=== PATIENT | male | born 1955 | race Caucasian/White ===

== ENCOUNTER → 2016-12-28 | Outpatient (CLI) | payer BC ==
[2016-12-28 09:23] LABS: CHLORIDE,CL 109 mmol/L (98-110); SODIUM,NA 145 mmol/L (136-146)
== END ==
LOC: MW.CHFP 08:38
PROVIDERS: ATTEND Student in an Organized Health Care Education/Training Program
DX: M15.2 Bouchard's nodes (with arthropathy) (principal); N40.1 Benign prostatic hyperplasia with lower urinary tract symptoms
CPT/HCPCS: 36415; 80053; 80061; G0103

== ENCOUNTER 2020-03-31 17:37 | Observation (INO) | payer BC, MEDICARE ==
[2020-03-31] MEDS ORDERED: Sodium Chloride 0.9% 2.5 ML Syringe FLUSH PRN (18:17)
[2020-03-31] MEDS ORDERED: Sodium Chloride 0.9% 10 ML Syringe FLUSH PRN (18:17)
--- NOTE | 2020-03-31 18:27 | EDM.PDOC ---
ED HPI GENERAL MEDICAL PROBLEM - General Chief Complaint: Eye Problems Stated Complaint: VISION PROBLEM Time Seen by Provider: 03/31/20 17:59 - History of Present Illness INITIAL COMMENTS - FREE TEXT/NARRATIVE: History of present illness: 64-year-old male presenting with bilateral left hemifield blurred vision for the last 2 to 3 days. He reports it looks like waves/ripples over the water. He is able to see items behind it but they are blurred. He reports that he thinks it is an allergy to the Macrobid that he was prescribed after prostate surgery that he had a week ago. He was in the hospital for several days after that and while he was in the hospital he developed headache. He thought it was just his usual tension headache in the setting of a recent surgery. Then he reports that he started to have some blurring in the left hemifield after they took out his Fields catheter before discharge. Symptoms have been ongoing since then. He reports he is stubborn and did not want to seek care. His aspirin has been held in anticipation of the surgery and he has not yet started, due to restart in 4 days. Review of systems: As per history of present illness and below otherwise all systems reviewed and negative. Past medical history: As per history of present illness and as reviewed below otherwise noncontributory. Surgical history: As per history of present illness and as reviewed below otherwise noncontributory. Social history: No reported history of drug or alcohol abuse. Family history: As per history of present illness and as reviewed below otherwise noncontributory. Physical exam: GEN: no acute distress, well appearing HEENT: Atraumatic, normocephalic, mucous membranes moist. No temporal tenderness. EOMI. No conjunctival injection. Pupils are equal, round and and reactive to light. Funduscopic exam, the optic disc is visible without any obvious abnormality or hemorrhage though exam is limited as the patient is unable to hold his eyes still. Neck: supple, nontender, trachea midline. Lungs: No respiratory distress. Heart: RRR Abdomen: Soft, nondistended, nontender. Back: nontender Extremities: Atraumatic. Neurovascularly intact. Neuro: Awake, alert, oriented. Neuro Exam nonfocal. Equal motor and sensation bilaterally over both arms, both legs and both sides of face. No ataxia. Intact gait. Patient does report left hemifield blurring with both eyes open and each eye independently tested. Skin: warm, dry, no lesions Diagnostics: CT scan shows right occipital subacute infarct Therapeutics: [] MDM: Suspect occipital, ongoing for the last [address] scan does show subacute stroke in the right stroke due to symptoms occipital lobe. Patient had to hold aspirin for recent surgery. Will admit. Impression: [] Plan: [] Definitive disposition and diagnosis as appropriate pending reevaluation and review of above. - Related Data Allergies Allergy/AdvReac Type Severity Reaction Status Date / Time No Known Allergies Allergy Verified 03/31/20 20:12 Home Meds: Home Meds Dorzolamide HCl 1 drop EYEBOTH BID 03/31/20 [History] Latanoprost/Pf [Latanoprost 0.005% Eye Drop] 1 drop EYEBOTH BEDTIME 03/31/20 [ History] Lisinopril/Hydrochlorothiazide [Lisinopril-HCTZ 10-12.5 MG] 1 tab PO DAILY 03/31 [History] Omeprazole 20 mg PO DAILY 03/31/20 [History] atorvaSTATin [Lipitor] 40 mg PO DAILY 03/31/20 [History] Past Medical History HEENT History: Reports: Glaucoma, Impaired Vision Cardiovascular History: Reports: High Cholesterol, Hypertension Respiratory History: Reports: None Gastrointestinal History: Reports: None Genitourinary History: Reports: None Musculoskeletal History: Reports: Back Pain, Chronic Neurological History: Reports: None Psychiatric History: Reports: None Endocrine/Metabolic History: Reports: None Hematologic History: Reports: None Immunologic History: Reports: None Oncologic (Cancer) History: Reports: None Dermatologic History: Reports: None - Infectious Disease History Infectious Disease History: Reports: Chicken Pox - Past Surgical History Head Surgeries/Procedures: Reports: None HEENT Surgical History: Reports: Naso-Sinus Surgery Cardiovascular Surgical History: Reports: None Respiratory Surgical History: Reports: None GI Surgical History: Reports: Appendectomy Male Surgical History: Reports: Prostate Biopsy, Vasectomy, Other (See Below) Endocrine Surgical History: Reports: None Neurological Surgical History: Reports: None Musculoskeletal Surgical History: Reports: Other (See Below) Other Musculoskeletal Surgeries/Procedures:: back surgery Oncologic Surgical History: Reports: None Dermatological Surgical History: Reports: None Social & Family History - Family History Family Medical History: Noncontributory - Tobacco Use Smoking Status *Q: Former Smoker Used Tobacco, but Quit: Yes Month/Year Tobacco Last Used: 5-8 years - Caffeine Use Caffeine Use: Reports: Coffee - Recreational Drug Use Recreational Drug Use: No ED ROS GENERAL - Review of Systems Review Of Systems: See Below (See HPI) ED EXAM GENERAL W FULL EYE - Physical Exam Exam: See Below (See dictation) EKG INTERPRETATION EKG Interpretation Comments: EKG performed today at 6:24 PM, sinus rhythm with rate 89, no acute ischemia, no arrhythmia. Course - Vital Signs Text/Narrative:: Paged hospitalist to admit the patient. Call not immediately returned. Orders placed and oncoming overnight physician will discuss the case with admitting physician when she calls back. Last Recorded V/S: Last Vital Signs Temp 98.1 F 04/01/20 05:47 Pulse 81 04/01/20 05:47 Resp 18 04/01/20 05:47 BP 133/81 04/01/20 05:47 Pulse Ox 93 L 04/01/20 05:47 - Orders/Labs/Meds Orders: Active Orders 24 hr Category Date Time Status Patient Status [ADT] Routine ADT 03/31/20 19:13 Active Sodium Chloride 0.9% [Saline Flush] Med 03/31/20 18:17 Active 10 ml FLUSH ASDIRECTED PRN Sodium Chloride 0.9% [Saline Flush] Med 03/31/20 18:17 Active 2.5 ml FLUSH ASDIRECTED PRN Saline Lock Insert [OM.PC] Stat Oth 03/31/20 18:17 Ordered Medication Orders Albuterol/Ipratropium (Duoneb 3.0-0.5 Mg/3 Ml) 3 ml NEB Q4HRRT PRN PRN Reason: Shortness Of Breath/wheezing Aspirin (Aspirin) 81 mg PO DAILY [facility] Atorvastatin Calcium (Lipitor) 40 mg PO DAILY [facility] Dorzolamide HCl (Trusopt 2% Oph Soln) 0 ml EYEBOTH BID HENRY Last Admin: 03/31/20 21:53 Dose: Lactated Ringer's (Ringers, Lactated) 1,000 mls @ 125 mls/hr IV ASDIRECTED HENRY Last Admin: 03/31/20 20:48 Dose: 125 mls/hr Latanoprost (Xalatan 0.005% Oph Soln) 0 ml EYEBOTH BEDTIME HENRY Last Admin: 03/31/20 23:56 Dose: Omeprazole (Omeprazole) 20 mg PO DAILY HENRY Sodium Chloride (Saline Flush) 10 ml FLUSH ASDIRECTED PRN PRN Reason: Keep Vein Open Sodium Chloride (Saline Flush) 2.5 ml FLUSH ASDIRECTED PRN PRN Reason: Keep Vein Open Labs: Laboratory Tests 03/31/20 03/31/20 03/31/20 Range/Units 18:27 18:27 18:27 WBC 9.41 (4.0-11.0) K/uL RBC 4.86 (4.50-5.90) M/uL Hgb 15.0 (13.0-17.0) g/dL Hct 44.7 (38.0-50.0) % MCV 92.0 (80.0-98.0) fL MCH 30.9 (27.0-32.0) pg MCHC 33.6 (31.0-37.0) g/dL RDW Std Deviation 43.0 (28.0-62.0) fl RDW Coeff of [place]admin[place] 13 (11.0-15.0) % Plt Count 326 (150-400) K/uL MPV 10.20 (7.40-12.00) fL Neut % (Auto) 60.5 (48.0-80.0) % Lymph % (Auto) 28.3 (16.0-40.0) % [place] % (Auto) 8.0 (0.0-15.0) % Eos % (Auto) 2.8 (0.0-7.0) % Baso % (Auto) 0.4 (0.0-1.5) % Neut # (Auto) 5.7 (1.4-5.7) K/uL Lymph # (Auto) 2.7 H (0.6-2.4) K/uL [place] # (Auto) 0.8 (0.0-0.8) K/uL Eos # (Auto) 0.3 (0.0-0.7) K/uL Baso # (Auto) 0.0 (0.0-0.1) K/uL Nucleated RBC % 0.0 /100WBC Nucleated RBCs # 0 K/uL ESR 11 (0-19) mm/hr Sodium 140 (136-148) mmol/L Potassium 3.9 (3.5-5.1) mmol/L Chloride 104 (98-107) mmol/L Carbon Dioxide 26.8 (21.0-32.0) mmol/L BUN 17 (7.0-18.0) mg/dL Creatinine 1.4 H (0.8-1.3) mg/dL Est Cr Clr Drug Dosing 64.58 mL/min Estimated GFR (MDRD) 50.9 ml/min Glucose 113 H (74-106) mg/dL Calcium 8.7 (8.5-10.1) mg/dL Total Bilirubin 0.3 (0.2-1.0) mg/dL AST 52 H (15-37) IU/L ALT 87 H (14-63) IU/L Alkaline Phosphatase 118 H (46-116) U/L Troponin I < 0.050 (0.000-0.056) ng/mL Total Protein 7.6 (6.4-8.2) g/dL Albumin 3.8 (3.4-5.0) g/dL Globulin 3.8 (2.6-4.0) g/dL Albumin/Globulin Ratio 1.0 (0.9-1.6) Meds: Medications Generic Name Dose Route Start Last Admin Trade Name Freq PRN Reason Stop Dose Admin Albuterol/Ipratropium 3 ml 03/31/20 20:06 Duoneb 3.0-0.5 Mg/3 Ml NEB Q4HRRT PRN Shortness Of Breath/wheezing Aspirin 81 mg 04/01/20 09:00 Aspirin PO DAILY [facility] Atorvastatin Calcium 40 mg 04/01/20 09:00 Lipitor PO DAILY [facility] Dorzolamide HCl 0 ml 03/31/20 21:00 03/31/20 21:53 Trusopt 2% Ophth Soln EYEBOTH Not Given BID HENRY Lactated Ringer's 1,000 mls @ 125 mls/hr 03/31/20 20:15 03/31/20 20:48 Ringers, Lactated IV 125 mls/hr ASDIRECTED HENRY Administration Latanoprost 0 ml 03/31/20 23:45 03/31/20 23:56 Xalatan 0.005% Ophth Soln EYEBOTH Not Given BEDTIME HENRY Omeprazole 20 mg 04/01/20 09:00 Omeprazole PO DAILY [facility]ENRY Sodium Chloride 10 ml 03/31/20 18:17 Saline Flush FLUSH ASDIRECTED PRN Keep Vein Open Sodium Chloride 2.5 ml 03/31/20 18:17 Saline Flush FLUSH ASDIRECTED PRN Keep Vein Open Discontinued Medications Generic Name Dose Route Start Last Admin Trade Name Warrenq PRN Reason Stop Dose Admin Aspirin 324 mg 03/31/20 19:31 03/31/20 19:56 Aspirin PO 03/31/20 19:32 324 mg ONETIME ONE Administration - Re-Assessments/Exams Free Text/Narrative Re-Assessment/Exam: 03/31/20 19:11 Else with patient and need for admission. He agrees with the plan. 19:20: Patient spouse arrived. I did update her as well and brought her back to see the patient. Discussed plan for admission. Both agree with the plan. Departure - Departure Time of Disposition: 19:12 Disposition: Refer to Observation Clinical Impression: Occipital stroke - Discharge Information Sepsis Event Note (ED) - Evaluation Sepsis Screening Result: No Definite Risk - My Orders Last 24 Hours: My Active Orders 03/31/20 18:17 Sodium Chloride 0.9% [Saline Flush] 10 ml FLUSH ASDIRECTED PRN Sodium Chloride 0.9% [Saline Flush] 2.5 ml FLUSH ASDIRECTED PRN Saline Lock Insert [OM.PC] Stat 03/31/20 19:13 Patient Status [ADT] Routine - Assessment/Plan Last 24 Hours: My Active Orders 03/31/20 18:17 Sodium Chloride 0.9% [Saline Flush] 10 ml FLUSH ASDIRECTED PRN Sodium Chloride 0.9% [Saline Flush] 2.5 ml FLUSH ASDIRECTED PRN Saline Lock Insert [OM.PC] Stat 03/31/20 19:13 Patient Status [ADT] Routine
--- NOTE | 2020-03-31 18:58 | CT ---
Head CT Technique: Multiple axial sections through the brain were obtained. Intravenous contrast was not utilized. Comparison: No prior intracranial imaging is available. Findings: Ventricles along with basal cisterns and sulci over the convexities are within normal limits for the patient's age. Low density is noted within the right occipital lobe which is most suspicious for a subacute infarct. Old infarct is noted within the left basal ganglia. No other abnormal parenchymal densities are seen. No evidence of intracranial hemorrhage. No midline shift or mass-effect is seen. Slight mucosal thickening is seen within the ethmoid sinuses. Retention cyst is noted within the inferior left maxillary sinus measuring 1.4 cm. Mastoid sinuses show nothing acute. Impression: 1. Subacute infarct within the right occipital lobe. Recommend MRI to confirm that this does represent an infarct. This can be done non-emergently as this finding appears to be irreversible. 2. Old infarct within the left basal ganglia. 3. No intracranial hemorrhage is seen. Diagnostic code #3 This report was dictated in MDT
[2020-03-31 18:59] LABS: BLOOD UREA NITROGEN,BUN 17 mg/dL (7.0-18.0); CARBON DIOXIDE,CO2 26.8 mmol/L (21.0-32.0); CHLORIDE,CL 104 mmol/L (98-107); GLUCOSE RANDOM 113 mg/dL (74-106); POTASSIUM,K 3.9 mmol/L (3.5-5.1); SODIUM,NA 140 mmol/L (136-148)
[2020-03-31] MEDS ORDERED: Aspirin 81 MG Tab.Chew PO ONE (19:31)
[2020-03-31] MEDS ORDERED: Albuterol/Ipratropium 3.0-0.5 MG/3 ML Neb Soln NEB PRN (20:06)
[2020-03-31] MEDS ORDERED: Lactated Ringers 1,000 ML IV SCH (20:15)
[2020-03-31] MEDS ORDERED: Dorzolamide 2% Ophth Soln 10 ML Bottle EYEBOTH SCH (21:00)
--- NOTE | 2020-03-31 21:08 | PCM.HP.2 ---
H&P History of Present Illness - General Date of Service: 03/31/20 Admit Problem/Dx: Admission Diagnosis/Problem Admission Diagnosis/Problem Stroke of unknown etiology - History of Present Illness Initial Comments - Free Text/Narative: 64-year-old male presenting with bilateral left hemifield blurred vision for the last 2 to 3 days. patient states that his vision looks like ripples over water surface. States he didnt come in earlier because he already has vision issues due to glucoma and cataract surgery and thought it might be an allergy to the Macrobid that he was prescribed after prostate surgery that he had a week ago. Patient states that he had a prostate surgery for BPH 1 week back and during his recovery he developed headache and blurry vision. States his symptoms were attributed to anaesthesia post op. Symptoms have been ongoing since then. His aspirin had been held in anticipation of the surgery and he had not yet started, due to restart in [address] showed subacute stroke in occipital lobe. Patient was admitted for further care. - Related Data Allergies/Adverse Reactions: Allergies Allergy/AdvReac Type Severity Reaction Status Date / Time No Known Allergies Allergy Verified 03/31/20 20:12 Home Medications: Home Meds Latanoprost/Pf [Latanoprost 0.005% Eye Drop] 1 drop EYEBOTH BEDTIME 03/31/20 [ History] Lisinopril/Hydrochlorothiazide [Lisinopril-HCTZ 10-12.5 MG] 10 - 12.5 mg PO DAILY 03/31/20 [History] Omeprazole 20 mg PO ACBREAKFAST 03/31/20 [History] atorvaSTATin [Lipitor] 40 mg PO DAILY 03/31/20 [History] Aspirin 81 mg PO DAILY tab.chew 04/01/20 [Rx] Clopidogrel Bisulfate [Plavix] 75 mg PO DAILY 30 Days #30 tablet 04/01/20 [Rx] Dorzolamide HCl/Timolol Maleat [Dorzolamide-Timolol Eye Drops] 1 drop EYEBOTH BID 04/01/20 [History] Patient's Own Medication [Ptom] 0 each EYEBOTH BID each 04/01/20 [Rx] Past Medical History HEENT History: Reports: Glaucoma, Impaired Vision Cardiovascular History: Reports: High Cholesterol, Hypertension Respiratory History: Reports: None Gastrointestinal History: Reports: None Genitourinary History: Reports: None Musculoskeletal History: Reports: Back Pain, Chronic Neurological History: Reports: None Psychiatric History: Reports: None Endocrine/Metabolic History: Reports: None Hematologic History: Reports: None Immunologic History: Reports: None Oncologic (Cancer) History: Reports: None Dermatologic History: Reports: None - Infectious Disease History Infectious Disease History: Reports: Chicken Pox - Past Surgical History Head Surgeries/Procedures: Reports: None HEENT Surgical History: Reports: Naso-Sinus Surgery Cardiovascular Surgical History: Reports: None Respiratory Surgical History: Reports: None GI Surgical History: Reports: Appendectomy Male Surgical History: Reports: Prostate Biopsy, Vasectomy, Other (See Below) Endocrine Surgical History: Reports: None Neurological Surgical History: Reports: None Musculoskeletal Surgical History: Reports: Other (See Below) Other Musculoskeletal Surgeries/Procedures:: back surgery Oncologic Surgical History: Reports: None Dermatological Surgical History: Reports: None Social & Family History - Family History Family Medical History: Noncontributory - Tobacco Use Smoking Status *Q: Former Smoker Years of Tobacco use: 5 Used Tobacco, but Quit: Yes Month/Year Tobacco Last Used: 2014 - Caffeine Use Caffeine Use: Reports: Coffee, Soda - Recreational Drug Use Recreational Drug Use: No H&P Review of Systems - Review of Systems: Review Of Systems: See Below General: Denies: Fever, Chills HEENT: Reports: Visual Changes. Denies: Dysphasia, Ear Pain, Eye Pain, Post Nasal Drip, Sinus Congestion, Sore Throat, Vertigo Pulmonary: Denies: Shortness of Breath, Wheezing Cardiovascular: Denies: Chest Pain, Palpitations, Dyspnea on Exertion Gastrointestinal: Denies: Abdominal Pain, Anorexia, Black Stool, Nausea Genitourinary: Denies: Dysuria, Frequency Musculoskeletal: Denies: Neck Pain, Shoulder Pain Skin: Denies: Jaundice, Mottled Psychiatric: Denies: Confusion, Depression, Mood Lability Neurological: Reports: Headache. Denies: Confusion Hematologic/Lymphatic: Denies: Anemia, Easy Bleeding Exam - Vital Signs Vital Signs: Last Vital Signs Temp 35.6 C L 03/31/20 19:59 Pulse 102 H 03/31/20 19:59 Resp 18 03/31/20 19:59 BP 147/99 H 03/31/20 19:59 Pulse Ox 94 L 03/31/20 19:59 Weight: 99.79 kg - Exam General: Alert, Oriented, Cooperative HEENT: Conjunctiva Clear Neck: Supple, Trachea Midline Lungs: Clear to Auscultation, Normal Respiratory Effort Cardiovascular: Regular Rate, Regular Rhythm, Normal S1, Normal S2 Extremities: Normal Inspection, Normal Range of Motion Neurological: Reflexes Equal Bilateral, Strength Equal Bilateral, Normal Speech , Normal Tone, Sensation Intact. No: Cranial Nerves Intact, Abnormal Gait Neuro Extensive - Mental Status: Alert, Oriented x3, Other (b/l hemianopsia more severe on left side ) - Patient Data Lab Results Last 24 hrs: Laboratory Results - last 24 hr 03/31/20 03/31/20 03/31/20 Range/Units 18:27 18:27 18:27 WBC 9.41 (4.0-11.0) K/uL RBC 4.86 (4.50-5.90) M/uL Hgb 15.0 (13.0-17.0) g/dL Hct 44.7 (38.0-50.0) % MCV 92.0 (80.0-98.0) fL MCH 30.9 (27.0-32.0) pg MCHC 33.6 (31.0-37.0) g/dL RDW Std Deviation 43.0 (28.0-62.0) fl RDW Coeff of [place] 13 (11.0-15.0) % Plt Count 326 (150-400) K/uL MPV 10.20 (7.40-12.00) fL Neut % (Auto) 60.5 (48.0-80.0) % Lymph % (Auto) 28.3 (16.0-40.0) % [place] % (Auto) 8.0 (0.0-15.0) % Eos % (Auto) 2.8 (0.0-7.0) % Baso % (Auto) 0.4 (0.0-1.5) % Neut # (Auto) 5.7 (1.4-5.7) K/uL Lymph # (Auto) 2.7 H (0.6-2.4) K/uL [place] # (Auto) 0.8 (0.0-0.8) K/uL Eos # (Auto) 0.3 (0.0-0.7) K/uL Baso # (Auto) 0.0 (0.0-0.1) K/uL Nucleated RBC % 0.0 /100WBC Nucleated RBCs # 0 K/uL ESR 11 (0-19) mm/hr Sodium 140 (136-148) mmol/L Potassium 3.9 (3.5-5.1) mmol/L Chloride 104 (98-107) mmol/L Carbon Dioxide 26.8 (21.0-32.0) mmol/L BUN 17 (7.0-18.0) mg/dL Creatinine 1.4 H (0.8-1.3) mg/dL Est Cr Clr Drug Dosing 64.58 mL/min Estimated GFR (MDRD) 50.9 ml/min Glucose 113 H (74-106) mg/dL Calcium 8.7 (8.5-10.1) mg/dL Total Bilirubin 0.3 (0.2-1.0) mg/dL AST 52 H (15-37) IU/L ALT 87 H (14-63) IU/L Alkaline Phosphatase 118 H (46-116) U/L Troponin I < 0.050 (0.000-0.056) ng/mL Total Protein 7.6 (6.4-8.2) g/dL Albumin 3.8 (3.4-5.0) g/dL Globulin 3.8 (2.6-4.0) g/dL Albumin/Globulin Ratio 1.0 (0.9-1.6) Result Diagrams: 04/01/20 05:35 04/01/20 05:35 Sepsis Event Note - Evaluation Sepsis Screening Result: No Definite Risk - Focused Exam Vital Signs: Vital Signs Temp Pulse Resp BP Pulse Ox 03/31/20 19:59 35.6 C L 102 H 18 147/99 H 94 L 03/31/20 17:50 35.8 C L 96 16 134/83 96 Date Exam was Performed: 04/01/20 Time Exam was Performed: 16:13 - Problem List (1) Occipital stroke SNOMED Code(s): 727569758 ICD Code: I63.9 - CEREBRAL INFARCTION, UNSPECIFIED Status: Acute (2) HLD (hyperlipidemia) SNOMED Code(s): 40346388 ICD Code: E78.5 - HYPERLIPIDEMIA, UNSPECIFIED Status: Acute (3) HTN (hypertension) SNOMED Code(s): 50772045 ICD Code: I10 - ESSENTIAL (PRIMARY) HYPERTENSION Status: Acute Problem List Initiated/Reviewed/Updated: Yes Orders Last 24hrs: Active Orders 24 hr Category Date Time Status Patient Status [ADT] Routine ADT 03/31/20 19:13 Active Ambulate [RC] ASDIRECTED Care 03/31/20 20:06 Active Antiembolic Devices [RC] PER UNIT ROUTINE Care 03/31/20 20:08 Active EKG Documentation Completion [RC] STAT Care 03/31/20 18:17 Active Oxygen Therapy [RC] PRN Care 03/31/20 20:06 Active Pulse Oximetry [RC] PRN Care 03/31/20 20:07 Active RT Aerosol Therapy [RC] ASDIRECTED Care 03/31/20 20:08 Active Telemetry Monitoring [Cardiac Monitoring] [RC] . Care 03/31/20 19:41 Active DIRECTED VTE/DVT Education [RC] PER UNIT ROUTINE Care 03/31/20 20:06 Active Vital Signs [RC] Q4H Care 03/31/20 20:06 Active Heart Healthy Diet [DIET] Diet 03/31/20 Dinner Active Ang Neck w wo Cont [MR] Routine Exams 03/31/20 20:12 Ordered Brain wo Cont [MR] Routine Exams 03/31/20 20:12 Ordered MRA Head Without Contrast [Ang Head wo Cont] [MR] Exams 03/31/20 20:11 Ordered Routine CBC WITH AUTO DIFF [HEME] AM Lab 04/01/20 05:11 Ordered CMP [COMPREHENSIVE METABOLIC PN,CMP] [CHEM] AM Lab 04/01/20 05:11 Ordered MAGNESIUM [CHEM] AM Lab 04/01/20 05:11 Ordered PHOSPHORUS [CHEM] AM Lab 04/01/20 05:11 Ordered Albuterol/Ipratropium [DuoNeb 3.0-0.5 MG/3 ML] Med 03/31/20 20:06 Active 3 ml NEB Q4HRRT PRN Aspirin Med 04/01/20 09:00 Active 81 mg PO DAILY Dorzolamide [Trusopt 2% Ophth Soln] Med 03/31/20 21:00 Active 0 ml EYEBOTH BID Lactated Ringers [Ringers, Lactated] 1,000 ml Med 03/31/20 20:15 Active IV ASDIRECTED Omeprazole Med 04/01/20 09:00 Active 20 mg PO DAILY Sodium Chloride 0.9% [Saline Flush] Med 03/31/20 18:17 Active 10 ml FLUSH ASDIRECTED PRN Sodium Chloride 0.9% [Saline Flush] Med 03/31/20 18:17 Active 2.5 ml FLUSH ASDIRECTED PRN atorvaSTATin [Lipitor] Med 04/01/20 09:00 Active 40 mg PO DAILY Saline Lock Insert [OM.PC] Stat Oth 03/31/20 18:17 Ordered Sequential Compression Device [OM.PC] Per Unit Routine Ot 03/31/20 20:07 Ordered Medication Orders Albuterol/Ipratropium (Duoneb 3.0-0.5 Mg/3 Ml) 3 ml NEB Q4HRRT PRN PRN Reason: Shortness Of Breath/wheezing Aspirin (Aspirin) 81 mg PO DAILY [facility] Atorvastatin Calcium (Lipitor) 40 mg PO DAILY [facility] Dorzolamide HCl (Trusopt 2% Ophth Soln) 0 ml EYEBOTH BID HENRY Lactated Ringer's (Ringers, Lactated) 1,000 mls @ 125 mls/hr IV ASDIRECTED HENRY Last Admin: 03/31/20 20:48 Dose: 125 mls/hr Omeprazole (Omeprazole) 20 mg PO DAILY [facility] Sodium Chloride (Saline Flush) 10 ml FLUSH ASDIRECTED PRN PRN Reason: Keep Vein Open Sodium Chloride (Saline Flush) 2.5 ml FLUSH ASDIRECTED PRN PRN Reason: Keep Vein Open Assessment/Plan Comment:: 64 y/o M admitted for management of subacute occipital stroke found on CT head Admit to observation Admit to telemetry start ASA, statin Check HbA1c, TSH, Lipids have been checked recently Will obtain MRI brain, MRA head and neck cont risk stratification Allow permissive HTN Monitor and replete electrolytes cardiac diet Stroke education Ambulate as able, fall precautions for now SCD for DVT ppx
[2020-03-31] MEDS ORDERED: Latanoprost 0.005% Ophth Soln 2.5 ML Bottle EYEBOTH SCH (23:45)
[2020-04-01 06:27] LABS: CARBON DIOXIDE,CO2 28.6 mmol/L (21.0-32.0); POTASSIUM,K 4.2 mmol/L (3.5-5.1)
[2020-04-01] MEDS ORDERED: DORZOLAMIDE EYEBOTH SCH (07:40)
[2020-04-01] MEDS ORDERED: TIMOLOL OPTH EYEBOTH SCH (07:40)
[2020-04-01] MEDS ORDERED: Omeprazole 20 MG Cap.CR PO SCH (07:45)
[2020-04-01 08:09] LABS: HEMOGLOBIN A1C 6.1 % (4.5-6.2)
[2020-04-01] MEDS ORDERED: Gadobenate Dimeglumine 529 MG/ML 20 ML SDV IVPUSH STA (08:35)
[2020-04-01] MEDS ORDERED: Aspirin 81 MG Tab.Chew PO SCH (09:00)
[2020-04-01] MEDS ORDERED: atorvaSTATin 40 MG Tab PO SCH (09:00)
--- NOTE | 2020-04-01 10:09 | MR ---
MR angiogram of brain Technique: [id number] MR angiogram study was obtained centered to the [place] of [place]. Reconstructed mid images were obtained in multiple projections. Comparison: Prior head CT study of , no prior arterial imaging of the brain is available. Findings: Both distal vertebral arteries are patent into the basilar artery as well as patency of both posterior cerebral arteries. Carotid siphon is patent into the middle and anterior cerebral arteries. No focal occlusion or stenosis is seen. No discrete aneurysm is appreciated. Both A1 segments are slightly small which are believed to be normal variant. Impression: 1. Small A1 segments on both sides believed to be normal variant. 2. No discrete stenosis or occlusion is seen within the cerebral vessels. Diagnostic code #2 This report was dictated in MDT
--- NOTE | 2020-04-01 11:06 | MR ---
MRI brain Technique: T1 sagittal and coronal; T1, FLAIR, T2 and diffusion axial of the brain were obtained. Comparison: Prior head CT study of 03/31/20. Findings: Increased signal is noted on the long TR sequence within the right occipital lobe. This occipital lesion also shows abnormal diffusion. Findings are felt compatible with subacute occipital infarct which is nonreversible. No other areas of abnormal diffusion are seen. Ventricles along with basal cisterns and sulci over the convexities are within normal limits for the patient's age. Multiple small areas of increased signal are seen within the subcortical and periventricular white matter which is felt to represent small vessel ischemic demyelination change. Impression: 1. Right occipital lobe infarct which appears subacute in age but is irreversible. 2. No other acute diffusion abnormalities are seen. 3. White matter changes which are felt compatible with diffuse small vessel ischemic demyelination change. Diagnostic code #3 This report was dictated in MDT
--- NOTE | 2020-04-01 11:06 | MR ---
MR angiogram of neck (without and with intravenous contrast) Technique: Phase contrast imaging was obtained of the neck. Significant artifact is noted on this study. Intravenous gadolinium then given and multiple rib images obtained of the neck. Findings: Contrast study is best to interpret. Common carotid arteries, innominate arteries, subclavian and proximal axillary arteries are patent. Carotid bulbs on both sides show no focal stenosis. Internal carotid arteries and proximal external carotid arteries appear within normal limits. Both vertebral arteries are seen. There is diffuse proximal narrowing of the left vertebral artery. Other portions of the left vertebral artery are patent. Impression: 1. Diffuse narrowing within the proximal left vertebral artery measuring greater than 50%. 2. No additional abnormality is seen on MR angiogram study of the neck. Diagnostic code #3 This report was dictated in MDT
--- NOTE | 2020-04-01 11:47 | PCM.PN ---
- Patient Data Vitals - Most Recent: Last Vital Signs Temp 98.8 F 04/01/20 11:37 Pulse 88 04/01/20 11:37 Resp 16 04/01/20 11:37 BP 138/84 04/01/20 11:37 Pulse Ox 95 04/01/20 11:37 Weight - Most Recent: 99.79 kg I&O - Last 24 Hours: Intake & Output 03/31/20 04/01/20 04/01/20 22:59 06:59 14:59 Intake Total 1280 Output Total 460 Balance 820 Lab Results Last 24 Hours: Laboratory Results - last 24 hr 03/31/20 03/31/20 03/31/20 Range/Units 18:27 18:27 18:27 WBC 9.41 (4.0-11.0) K/uL RBC 4.86 (4.50-5.90) M/uL Hgb 15.0 (13.0-17.0) g/dL Hct 44.7 (38.0-50.0) % MCV 92.0 (80.0-98.0) fL MCH 30.9 (27.0-32.0) pg MCHC 33.6 (31.0-37.0) g/dL RDW Std Deviation 43.0 (28.0-62.0) fl RDW Coeff of Padmini 13 (11.0-15.0) % Plt Count 326 (150-400) K/uL MPV 10.20 (7.40-12.00) fL Neut % (Auto) 60.5 (48.0-80.0) % Lymph % (Auto) 28.3 (16.0-40.0) % [place] % (Auto) 8.0 (0.0-15.0) % Eos % (Auto) 2.8 (0.0-7.0) % Baso % (Auto) 0.4 (0.0-1.5) % Neut # (Auto) 5.7 (1.4-5.7) K/uL Lymph # (Auto) 2.7 H (0.6-2.4) K/uL [place] # (Auto) 0.8 (0.0-0.8) K/uL Eos # (Auto) 0.3 (0.0-0.7) K/uL Baso # (Auto) 0.0 (0.0-0.1) K/uL Nucleated RBC % 0.0 /100WBC Nucleated RBCs # 0 K/uL ESR 11 (0-19) mm/hr Sodium 140 (136-148) mmol/L Potassium 3.9 (3.5-5.1) mmol/L Chloride 104 (98-107) mmol/L Carbon Dioxide 26.8 (21.0-32.0) mmol/L BUN 17 (7.0-18.0) mg/dL Creatinine 1.4 H (0.8-1.3) mg/dL Est Cr Clr Drug Dosing 64.58 mL/min Estimated GFR (MDRD) 50.9 ml/min Glucose 113 H (74-106) mg/dL Hemoglobin A1c (4.5-6.2) % Calcium 8.7 (8.5-10.1) mg/dL Phosphorus (2.6-4.7) mg/dL Magnesium (1.8-2.4) mg/dL Total Bilirubin 0.3 (0.2-1.0) mg/dL AST 52 H (15-37) IU/L ALT 87 H (14-63) IU/L Alkaline Phosphatase 118 H (46-116) U/L Troponin I < 0.050 (0.000-0.056) ng/mL Total Protein 7.6 (6.4-8.2) g/dL Albumin 3.8 (3.4-5.0) g/dL Globulin 3.8 (2.6-4.0) g/dL Albumin/Globulin Ratio 1.0 (0.9-1.6) 03/31/20 04/01/20 04/01/20 Range/Units 18:27 05:35 05:35 WBC 8.44 (4.0-11.0) K/uL RBC 4.38 L (4.50-5.90) M/uL Hgb 13.3 (13.0-17.0) g/dL Hct 40.3 (38.0-50.0) % MCV 92.0 (80.0-98.0) fL MCH 30.4 (27.0-32.0) pg MCHC 33.0 (31.0-37.0) g/dL RDW Std Deviation 43.3 (28.0-62.0) fl RDW Coeff of Padmini 13 (11.0-15.0) % Plt Count 267 (150-400) K/uL MPV 10.20 (7.40-12.00) fL Neut % (Auto) 58.3 (48.0-80.0) % Lymph % (Auto) 30.3 (16.0-40.0) % [place] % (Auto) 8.4 (0.0-15.0) % Eos % (Auto) 2.6 (0.0-7.0) % Baso % (Auto) 0.4 (0.0-1.5) % Neut # (Auto) 4.9 (1.4-5.7) K/uL Lymph # (Auto) 2.6 H (0.6-2.4) K/uL [place] # (Auto) 0.7 (0.0-0.8) K/uL Eos # (Auto) 0.2 (0.0-0.7) K/uL Baso # (Auto) 0.0 (0.0-0.1) K/uL Nucleated RBC % 0.0 /100WBC Nucleated RBCs # 0 K/uL ESR (0-19) mm/hr Sodium 143 (136-148) mmol/L Potassium 4.2 (3.5-5.1) mmol/L Chloride 106 (98-107) mmol/L Carbon Dioxide 28.6 (21.0-32.0) mmol/L BUN 15 (7.0-18.0) mg/dL Creatinine 1.3 (0.8-1.3) mg/dL Est Cr Clr Drug Dosing 69.55 mL/min Estimated GFR (MDRD) 55.4 ml/min Glucose 109 H (74-106) mg/dL Hemoglobin A1c 6.1 (4.5-6.2) % Calcium 8.5 (8.5-10.1) mg/dL Phosphorus 3.5 (2.6-4.7) mg/dL Magnesium 1.9 (1.8-2.4) mg/dL Total Bilirubin 0.5 (0.2-1.0) mg/dL AST 42 H (15-37) IU/L ALT 74 H (14-63) IU/L Alkaline Phosphatase 91 (46-116) U/L Troponin I (0.000-0.056) ng/mL Total Protein 6.4 (6.4-8.2) g/dL Albumin 3.3 L (3.4-5.0) g/dL Globulin 3.1 (2.6-4.0) g/dL Albumin/Globulin Ratio 1.1 (0.9-1.6) Med Orders - Current: Current Medications Albuterol/Ipratropium (Duoneb 3.0-0.5 Mg/3 Ml) 3 ml NEB Q4HRRT PRN PRN Reason: Shortness Of Breath/wheezing Aspirin (Aspirin) 81 mg PO DAILY [facility] Last Admin: 04/01/20 09:44 Dose: 81 mg Lactated Ringer's (Ringers, Lactated) 1,000 mls @ 125 mls/hr IV ASDIRECTED [facility] Last Admin: 03/31/20 20:48 Dose: 125 mls/hr Omeprazole (Omeprazole) 20 mg PO ACBREAKFAST [facility] Last Admin: 04/01/20 09:44 Dose: 20 mg Atorvastatin 40 Mg (Tab) 0 each PO DAILY [facility] Last Admin: 04/01/20 09:44 Dose: 1 each Dorzolamide/Timolol (Opth Drops) 0 each EYEBOTH BID [facility] Last Admin: 04/01/20 09:45 Dose: 1 each Latanoprost 0.005% Ophth Soln 2.5 Ml Bottle 0 each EYEBOTH BEDTIME [facility] Sodium Chloride (Saline Flush) 10 ml FLUSH ASDIRECTED PRN PRN Reason: Keep Vein Open Sodium Chloride (Saline Flush) 2.5 ml FLUSH ASDIRECTED PRN PRN Reason: Keep Vein Open Discontinued Medications Aspirin (Aspirin) 324 mg PO ONETIME ONE Stop: 03/31/20 19:32 Last Admin: 03/31/20 19:56 Dose: 324 mg Dorzolamide HCl (Trusopt 2% Ophth Soln) 0 ml EYEBOTH BID [facility] Last Admin: 03/31/20 21:53 Dose: Not Given Gadobenate Dimeglumine (Multihance) 20 ml IVPUSH ONETIME STA Stop: 04/01/20 08:36 Last Admin: 04/01/20 08:37 Dose: 20 ml Latanoprost (Xalatan 0.005% Ophth Soln) 0 ml EYEBOTH BEDTIME [facility] Last Admin: 03/31/20 23:56 Dose: Not Given Sepsis Event Note - Evaluation Sepsis Screening Result: No Definite Risk - Focused Exam Vital Signs: Vital Signs Temp Pulse Resp BP Pulse Ox 04/01/20 11:37 98.8 F 88 16 138/84 95 04/01/20 07:50 97.9 F 70 16 122/71 94 L 04/01/20 05:47 98.1 F 81 18 133/81 93 L 04/01/20 02:19 98.4 F 79 18 129/79 96 Date Exam was Performed: 04/01/20 Time Exam was Performed: 11:47
--- NOTE | 2020-04-01 18:17 | PCM.DCSUM1 ---
Discharge Summary - Hospital Course Free Text/Narrative:: 64-year-old male presented with bilateral left hemifield blurred vision for the last 2 to 3 days prior to admission. patient states that his vision looks like "ripples over water surface". States he didnt come in earlier because he already has vision issues due to Glaucoma and cataract surgery and thought it might be an allergy to the Macrobid that he was prescribed after prostate surgery that he had a week ago. Patient states that he had a prostate surgery for BPH 1 week back and during his recovery he developed headache and blurry vision. States his symptoms were attributed to anaesthesia post op. Symptoms have been ongoing since then. His aspirin had been held in anticipation of the surgery and he had not yet started, due to restart in [address] showed subacute stroke in occipital lobe. Patient was admitted for further care. ED course: received ASA Head CT without contrast: Subacute infarct within the right occipital lobe. 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 No intracranial hemorrhage appreciated hospital course: continued left hemifield blurred vision; otherwise no other neurological deficits appreciated at bedside: CN intact; 5/5 strength; ambulating well however does have left field vision loss which makes navigating precarious; advised not to drive unless cleared by Neurology. No pronator drift appreciated. even and intact smile. right hand dominant Alert and oriented; memory intact. Imaging: MRI brain: Right occipital lobe infarct; subacute diffuse small vessel ischemic demyelination Neck MRA: diffuse narrowing of left Vertebral artery possibly >50% Discussed case w. Dr Lo of Neurology; advised to provide pt w. Plavix; (dual antiplatelet therapy) ; Echocardiogram ordered and Zio patch placed x 2- weeks. Advised to continue home medications ; follow up with PCP and Neurology placed. Patient understood plan. all questions answered. Will Return to [facility]. - Discharge Data Discharge Date: 04/01/20 Discharge Disposition: Home, Self-Care 01 Condition: Stable - Referral to Home Health Primary Care Physician: Joaquin Feldman MD - Patient Instructions Diet: Heart Healthy Diet Driving: Do Not Drive Notify Provider of: Fever, Increased Pain - Discharge Plan Prescriptions/Med Rec: Clopidogrel Bisulfate [Plavix] 75 mg PO DAILY 30 Days #30 tablet Home Medications: Home Meds Latanoprost/Pf [Latanoprost 0.005% Eye Drop] 1 drop EYEBOTH BEDTIME 03/31/20 [History] Lisinopril/Hydrochlorothiazide [Lisinopril-HCTZ 10-12.5 MG] 10 - 12.5 mg PO DAILY 03/31/20 [History] Omeprazole 20 mg PO ACBREAKFAST 03/31/20 [History] atorvaSTATin [Lipitor] 40 mg PO DAILY 03/31/20 [History] Aspirin 81 mg PO DAILY tab.chew 04/01/20 [Rx] Clopidogrel Bisulfate [Plavix] 75 mg PO DAILY 30 Days #30 tablet 04/01/20 [Rx] Dorzolamide HCl/Timolol Maleat [Dorzolamide-Timolol Eye Drops] 1 drop EYEBOTH BID 04/01/20 [History] Patient's Own Medication [Ptom] 0 each EYEBOTH BID each 04/01/20 [Rx] Patient Handouts: Stroke Prevention, [id number], Clopidogrel tablets Referrals: Bhumika Lo MD [Physician] - (The nurse will be contacting you with appointment details. ) Joaquin Feldman MD [Primary Care Provider] - 04/09/20 9:30 am (Arrive 15 minutes early with a photo ID, insurance card, and a mask if you have one. ) - Discharge Summary/Plan Comment DC Time >30 min.: No - Patient Data Vitals - Most Recent: Last Vital Signs Temp 98.8 F 04/01/20 11:37 Pulse 88 04/01/20 11:37 Resp 16 04/01/20 11:37 BP 138/84 04/01/20 11:37 Pulse Ox 95 04/01/20 11:37 Weight - Most Recent: 99.79 kg I&O - Last 24 hours: Intake & Output 04/01/20 04/01/20 04/01/20 06:59 14:59 22:59 Intake Total 1280 Output Total 460 Balance 820 Lab Results - Last 24 hrs: Laboratory Results - last 24 hr 03/31/20 03/31/20 03/31/20 Range/Units 18:27 18:27 18:27 WBC 9.41 (4.0-11.0) K/uL RBC 4.86 (4.50-5.90) M/uL Hgb 15.0 (13.0-17.0) g/dL Hct 44.7 (38.0-50.0) % MCV 92.0 (80.0-98.0) fL MCH 30.9 (27.0-32.0) pg MCHC 33.6 (31.0-37.0) g/dL RDW Std Deviation 43.0 (28.0-62.0) fl RDW Coeff of Padmini 13 (11.0-15.0) % Plt Count 326 (150-400) K/uL MPV 10.20 (7.40-12.00) fL Neut % (Auto) 60.5 (48.0-80.0) % Lymph % (Auto) 28.3 (16.0-40.0) % [place] % (Auto) 8.0 (0.0-15.0) % Eos % (Auto) 2.8 (0.0-7.0) % Baso % (Auto) 0.4 (0.0-1.5) % Neut # (Auto) 5.7 (1.4-5.7) K/uL Lymph # (Auto) 2.7 H (0.6-2.4) K/uL [place] # (Auto) 0.8 (0.0-0.8) K/uL Eos # (Auto) 0.3 (0.0-0.7) K/uL Baso # (Auto) 0.0 (0.0-0.1) K/uL Nucleated RBC % 0.0 /100WBC Nucleated RBCs # 0 K/uL ESR 11 (0-19) mm/hr Sodium 140 (136-148) mmol/L Potassium 3.9 (3.5-5.1) mmol/L Chloride 104 (98-107) mmol/L Carbon Dioxide 26.8 (21.0-32.0) mmol/L BUN 17 (7.0-18.0) mg/dL Creatinine 1.4 H (0.8-1.3) mg/dL Est Cr Clr Drug Dosing 64.58 mL/min Estimated GFR (MDRD) 50.9 ml/min Glucose 113 H (74-106) mg/dL Hemoglobin A1c (4.5-6.2) % Calcium 8.7 (8.5-10.1) mg/dL Phosphorus (2.6-4.7) mg/dL Magnesium (1.8-2.4) mg/dL Total Bilirubin 0.3 (0.2-1.0) mg/dL AST 52 H (15-37) IU/L ALT 87 H (14-63) IU/L Alkaline Phosphatase 118 H (46-116) U/L Troponin I < 0.050 (0.000-0.056) ng/mL Total Protein 7.6 (6.4-8.2) g/dL Albumin 3.8 (3.4-5.0) g/dL Globulin 3.8 (2.6-4.0) g/dL Albumin/Globulin Ratio 1.0 (0.9-1.6) 03/31/20 04/01/20 04/01/20 Range/Units 18:27 05:35 05:35 WBC 8.44 (4.0-11.0) K/uL RBC 4.38 L (4.50-5.90) M/uL Hgb 13.3 (13.0-17.0) g/dL Hct 40.3 (38.0-50.0) % MCV 92.0 (80.0-98.0) fL MCH 30.4 (27.0-32.0) pg MCHC 33.0 (31.0-37.0) g/dL RDW Std Deviation 43.3 (28.0-62.0) fl RDW Coeff of Padmini 13 (11.0-15.0) % Plt Count 267 (150-400) K/uL MPV 10.20 (7.40-12.00) fL Neut % (Auto) 58.3 (48.0-80.0) % Lymph % (Auto) 30.3 (16.0-40.0) % [place] % (Auto) 8.4 (0.0-15.0) % Eos % (Auto) 2.6 (0.0-7.0) % Baso % (Auto) 0.4 (0.0-1.5) % Neut # (Auto) 4.9 (1.4-5.7) K/uL Lymph # (Auto) 2.6 H (0.6-2.4) K/uL [place] # (Auto) 0.7 (0.0-0.8) K/uL Eos # (Auto) 0.2 (0.0-0.7) K/uL Baso # (Auto) 0.0 (0.0-0.1) K/uL Nucleated RBC % 0.0 /100WBC Nucleated RBCs # 0 K/uL ESR (0-19) mm/hr Sodium 143 (136-148) mmol/L Potassium 4.2 (3.5-5.1) mmol/L Chloride 106 (98-107) mmol/L Carbon Dioxide 28.6 (21.0-32.0) mmol/L BUN 15 (7.0-18.0) mg/dL Creatinine 1.3 (0.8-1.3) mg/dL Est Cr Clr Drug Dosing 69.55 mL/min Estimated GFR (MDRD) 55.4 ml/min Glucose 109 H (74-106) mg/dL Hemoglobin A1c 6.1 (4.5-6.2) % Calcium 8.5 (8.5-10.1) mg/dL Phosphorus 3.5 (2.6-4.7) mg/dL Magnesium 1.9 (1.8-2.4) mg/dL Total Bilirubin 0.5 (0.2-1.0) mg/dL AST 42 H (15-37) IU/L ALT 74 H (14-63) IU/L Alkaline Phosphatase 91 (46-116) U/L Troponin I (0.000-0.056) ng/mL Total Protein 6.4 (6.4-8.2) g/dL Albumin 3.3 L (3.4-5.0) g/dL Globulin 3.1 (2.6-4.0) g/dL Albumin/Globulin Ratio 1.1 (0.9-1.6) Med Orders - Current: Current Medications Discontinued Medications Albuterol/Ipratropium (Duoneb 3.0-0.5 Mg/3 Ml) 3 ml NEB Q4HRRT PRN PRN Reason: Shortness Of Breath/wheezing Aspirin (Aspirin) 324 mg PO ONETIME ONE Stop: 03/31/20 19:32 Last Admin: 03/31/20 19:56 Dose: 324 mg Aspirin (Aspirin) 81 mg PO DAILY [facility] Last Admin: 04/01/20 09:44 Dose: 81 mg Dorzolamide HCl (Trusopt 2% Ophth Soln) 0 ml EYEBOTH BID [facility] Last Admin: 03/31/20 21:53 Dose: Not Given Gadobenate Dimeglumine (Multihance) 20 ml IVPUSH ONETIME STA Stop: 04/01/20 08:36 Last Admin: 04/01/20 08:37 Dose: 20 ml Lactated Ringer's (Ringers, Lactated) 1,000 mls @ 125 mls/hr IV ASDIRECTED [facility] Last Admin: 03/31/20 20:48 Dose: 125 mls/hr Latanoprost (Xalatan 0.005% Ophth Soln) 0 ml EYEBOTH BEDTIME [facility] Last Admin: 03/31/20 23:56 Dose: Not Given Omeprazole (Omeprazole) 20 mg PO ACBREAKFAST [facility] Last Admin: 04/01/20 09:44 Dose: 20 mg Atorvastatin 40 Mg (Tab) 0 each PO DAILY [facility] Last Admin: 04/01/20 09:44 Dose: 1 each Dorzolamide/Timolol (Opth Drops) 0 each EYEBOTH BID [facility] Last Admin: 04/01/20 09:45 Dose: 1 each Latanoprost 0.005% Ophth Soln 2.5 Ml Bottle 0 each EYEBOTH BEDTIME [facility] Sodium Chloride (Saline Flush) 10 ml FLUSH ASDIRECTED PRN PRN Reason: Keep Vein Open Sodium Chloride (Saline Flush) 2.5 ml FLUSH ASDIRECTED PRN PRN Reason: Keep Vein Open
[2020-04-01] MEDS ORDERED: Latanoprost 0.005% Ophth Soln 2.5 ML Bottle EYEBOTH SCH (21:00)
== END 2020-04-01 15:35 | disposition home or self-care (01) ==
LOC: MW.ED 17:37 → MW.MS 19:13
PROVIDERS: ADMIT Student in an Organized Health Care Education/Training Program; ATTEND Student in an Organized Health Care Education/Training Program
DX: I63.9 Cerebral infarction, unspecified (principal); E78.00 Pure hypercholesterolemia, unspecified; I10 Essential (primary) hypertension; E78.5 Hyperlipidemia, unspecified; Z79.899 Other long term (current) drug therapy; Z87.891 Personal history of nicotine dependence; Z79.82 Long term (current) use of aspirin
CPT/HCPCS: 0296T; 36415; 70450; 70544; 70549; 70551; 80053; 83036; 83735; 84100; 84484; 85025; 85652; 93005; 93306; 99285; A9270; A9577; G0378; J7120

== ENCOUNTER 2022-10-01 07:57 | Day surgery (SDC) | payer BC ==
[~2022-10-01 07:57] MED LIST: Lactated Ringers 1,000 ML IV SCH; Sodium Chloride 0.9% 10 ML Syringe FLUSH PRN; Sodium Chloride 0.9% 2.5 ML Syringe FLUSH PRN; Sodium Chloride 0.9% 20 ML SDV IV PRN
[2022-10-01] MEDS ORDERED: Propofol 200 MG/20 ML SDV ONE (10:24)
== END 2022-10-01 11:45 | disposition home or self-care (01) ==
LOC: MW.SDS 07:57
PROVIDERS: ATTEND Surgery
DX: Z12.11 Encounter for screening for malignant neoplasm of colon (principal); K63.5 Polyp of colon; K57.30 Diverticulosis of large intestine without perforation or abscess without bleeding; K21.9 Gastro-esophageal reflux disease without esophagitis; E78.5 Hyperlipidemia, unspecified; N40.1 Benign prostatic hyperplasia with lower urinary tract symptoms; R33.8 Other retention of urine; I10 Essential (primary) hypertension; E78.00 Pure hypercholesterolemia, unspecified; M19.90 Unspecified osteoarthritis, unspecified site; G43.909 Migraine, unspecified, not intractable, without status migrainosus; Z79.899 Other long term (current) drug therapy; Z79.82 Long term (current) use of aspirin; Z90.49 Acquired absence of other specified parts of digestive tract; Z98.890 Other specified postprocedural states; Z87.891 Personal history of nicotine dependence
CPT/HCPCS: 45380; J2704; J7120; 00811